=== PATIENT | male | born 2000 | race Caucasian/White ===

== ENCOUNTER 2024-08-12 14:14 | Emergency (ER) | payer BC ==
[~2024-08-12] VITALS: Ht 175.3 cm; Wt 80.7 kg
[2024-08-12 14:25] VITALS: BP 127/84; TEMP 98.4
[2024-08-12] MEDS ORDERED: IBUP-1490 PO (14:48)
[2024-08-12] MEDS ORDERED: KETOROLAC TROMETHAMINE 15 MG/ML VIAL ONE (15:03)
[2024-08-12] MEDS: KETOROLAC TROMETHAMINE 15 MG/ML VIAL IM ONE (15:06)
[2024-08-12 15:07] VITALS: O2SAT 98
== END 2024-08-12 15:07 | disposition home or self-care (01) ==
LOC: ER 14:55
DX: M25.511 Pain in right shoulder (principal); M54.2 Cervicalgia
CPT/HCPCS: 99283; 96372; J1885